=== PATIENT | female | born 1935 | race Caucasian/White ===

== ENCOUNTER → 2017-04-10 | Day surgery (SDC) | payer MEDICARE ==
[~2017-04-10] VITALS: Ht 162.6 cm; Wt 52.3 kg
[~2017-04-10] MED LIST: ALPR1TAB3 PO; ANAS1 PO; AZIT500I PO; CHLORHEXIDINE GLUCONATE 2 % 1 PACK (2 CLOTHS) TOPICAL PRN; COEN1CAP PO; ENAL20TA PO; FLUT1SPR5 EACH NARE; HYALURONIDASE/LIDOCAINE/BUPIVACAINE 5 ML SYR ONE; HYALURONIDASE/LIDOCAINE/BUPIVACAINE 5 ML SYR RIGHT EYE PRN; INSULIN HUMAN REGULAR 1,000 UNITS/10 ML VIAL SQ PRN; LACTATED RINGER'S 1000 ML IV PRN; LISI-515 PO; MELA5TAB15 PO; METOPROLOL TARTRATE 25 MG TAB PO PRN; MIRTA15 PO; MONT10TA4 PO; MULTTAB67 PO; OMEG10004 PO; OMEP20TA PO; PARO1TAB71 PO; POVIDONE IODINE 5% (ANTISEPSIS KIT) 4 APPLICATIONS EACH NARE PRN; PROPARACAINE HCL 0.5% OPHT SOLN 15 ML BTL RIGHT EYE ONE; PROPOFOL 200 MG/20 ML AMP ONE; SM CCHW2 PO; SODIUM CHLORID 0.9% 500 ML INJ 500 ML ONE; SODIUM CHLORID 0.9% 500 ML IV PRN; TEMA30CA PO; TOBRAMYCIN/DEXAMETHASONE OPTH OINT 3.5 GM TUBE ONE; TURM500C3 PO; VITA10002 PO; VITA200C3 PO; VITA500T83 PO; omega 3 PO; tumeric curcumin PO; vitamin b12 PO
[2017-04-10] MEDS: CYCLOPENTOLATE HCL 1% OPHT SOLN 2 ML BTL RIGHT EYE SCH ×4 (07:45→08:00)
[2017-04-10] MEDS: TROPICAMIDE 1% OPHT SOLN 15 ML BTL RIGHT EYE SCH ×4 (07:45→08:00)
[2017-04-10] MEDS: PHENYLEPHRINE HCL 10% OPTH SOLN 5 ML BTL RIGHT EYE SCH ×4 (07:45→08:00)
[2017-04-10] MEDS: FLURBIPROFEN 0.03% OPHT SOLN 2.5 ML BTL RIGHT EYE SCH ×4 (07:45→08:00)
[2017-04-10 08:00] VITALS: PULSE 62
[2017-04-10 08:35] VITALS: PULSE 62
[2017-04-10 10:05] VITALS: BP 165/99; PULSE 71; RESP 16; TEMP 98.2; O2SAT 97
--- NOTE | 2017-04-10 13:37 | MP ---
cc: BRYANT HERNÁNDEZ M.D. [facility] #[id number] DATE OF SURGERY 04/10/2017 PREOPERATIVE DIAGNOSIS Visually significant cataract right eye. POSTOPERATIVE DIAGNOSIS Visually significant cataract right eye. OPERATION Phacoemulsification with posterior chamber lens implantation, right eye. SURGEON Bryant Hernández MD ANESTHESIA Retrobulbar with MAC. COMPLICATIONS None PROCEDURE After informed consent was obtained, the patient was brought into the operative suite and placed on appropriate monitors by the Anesthesia Service. The patient had received a prior retrobulbar injection of local anesthetic by the Anesthesia Service in the holding area. The patient's operative eye was then prepped and draped in the usual sterile fashion. A wire lid speculum was placed. A paracentesis incision was made in the peripheral cornea with a 1 mm darshan keratome. The anterior chamber was filled with viscoelastic. The anterior chamber was then entered through a stepped, clear corneal incision using a sharp 3 mm darshan keratome. A circular tear capsulorrhexis was then made with a bent needle cystitome. Following hydrodissection of the lens nucleus with balanced saline, phacoemulsification of the nucleus was performed using a modified chopping technique. The remaining cortex was removed with irrigation/aspiration. The prior two procedures were both performed using the handpieces of the [employer] phaco unit. The capsular bag was then filled with viscoelastic. The intraocular lens was then injected into the capsular bag and positioned. The type of intraocular lens and its power can be found elsewhere in this chart. The remaining viscoelastic was then removed from the anterior chamber with the IA handpiece. The anterior chamber was reformed with balanced saline. The wound was then closed securely with stromal hydration. It was found to be watertight to an intraocular pressure of at least 30 mmHg by palpation. A small amount of balanced salt solution was then removed through the paracentesis site and the intraocular pressure at the end of the case was approximately 20 by palpation. All drapes were then removed. TobraDex ointment was then placed in the eye, which was closed beneath a semi-pressure patch dressing. The patient tolerated this procedure well and left the operating room awake and alert. The patient is to follow-up in my office in the morning. MD ITA Ford/JAN /9:20 AM /1:21 PM
== END | disposition home or self-care (01) ==
LOC: PHSDC 06:50
PROVIDERS: ATTEND Optometrist Occupational Vision
DX: H25.811 Combined forms of age-related cataract, right eye (principal); H26.492 Other secondary cataract, left eye; H04.123 Dry eye syndrome of bilateral lacrimal glands; H02.403 Unspecified ptosis of bilateral eyelids; K21.9 Gastro-esophageal reflux disease without esophagitis; Z85.828 Personal history of other malignant neoplasm of skin; Z85.3 Personal history of malignant neoplasm of breast; Z85.05 Personal history of malignant neoplasm of liver
CPT/HCPCS: 00142; 66984; J7040; V2632